=== PATIENT | male | born 1955 | race Caucasian/White ===

== ENCOUNTER 2018-06-25 11:09 | Emergency (ER) | payer OTHER ==
[2018-06-25] MEDS ORDERED: KETOROLAC 60 MG/2 ML VIAL IM STA (11:52)
--- NOTE | 2018-06-25 13:04 | XR ---
EXAMINATION TYPE: XR scapula LT DATE OF EXAM: 06/25/2018 COMPARISON: NONE HISTORY: Left scapular pain after fall injury today. TECHNIQUE: 2 views of left scapula are obtained. FINDINGS: No acute displaced fracture is seen. Overlying soft tissue is unremarkable. Visualized ribs are intact. IMPRESSION: As above.
--- NOTE | 2018-06-25 13:20 | XR ---
EXAMINATION TYPE: XR chest 2V DATE OF EXAM: 06/25/2018 COMPARISON: NONE HISTORY: Fall injury today with chest pain. TECHNIQUE: Frontal and lateral views of the chest are obtained. FINDINGS: There is some chronic parenchymal change without suspicious focal air space opacity, pleur al effusion, or pneumothorax seen. The cardiac silhouette size is within normal limits. The osseou s structures are intact. IMPRESSION: No acute cardiopulmonary process.
--- NOTE | 2018-06-25 13:23 | ED ---
General Adult HPI - General Chief complaint: Upper Respiratory Infection Stated complaint: Fell/Lt shoulder pain Time Seen by Provider: 06/25/18 11:10 Source: patient, RN notes reviewed Mode of arrival: ambulatory Limitations: no limitations - History of Present Illness Initial comments: This is a 8-year-old male who presents emergency Department complaining of left scapular pain. Patient states he fell on the ice yesterday and hurt his left scapula he try to put up with it since then but the pain is gotten too bad. Patient denies any difficulty breathing. Patient denies any shoulder pain. Patient denies any clavicle pain. Patient denies any central back pain. Patient denies any lower back pain. Patient denies any extremity pain. Patient states the pain is only over the scapula. She denies hitting his head patient denies any neck pain. Patient denies any numbness weakness. - Related Data Previous Rx's Medication Instructions Recorded Ketorolac [Toradol] 10 mg PO Q6HR #15 tab 06/25/18 Allergies Allergy/AdvReac Type Severity Reaction Status Date / Time Penicillins Allergy Anaphylaxis Verified 06/25/18 11:12 Review of Systems ROS Statement: Those systems with pertinent positive or pertinent negative responses have been documented in the HPI. ROS Other: All systems not noted in ROS Statement are negative. Past Medical History Past Medical History: Hypertension, Myocardial Infarction ([place]) Additional Past Medical History / Comment(s): Parkinson's History of Any Multi-Drug Resistant Organisms: None Reported Past Surgical History: Heart Catheterization With Stent, Orthopedic Surgery Additional Past Surgical History / Comment(s): L arm, Past Psychological History: No Psychological Hx Reported Smoking Status: Former smoker Past Alcohol Use History: None Reported Past Drug Use History: Marijuana General Exam - General Exam Comments Initial Comments: GENERAL: Patient is well-developed and well-nourished. Patient is nontoxic and well- hydrated and is in mild distress. ENT: Neck is soft and supple. No significant lymphadenopathy is noted. Oropharynx is clear. Moist mucous membranes. Neck has full range of motion without eliciting any pain. EYES: The sclera were anicteric and conjunctiva were pink and moist. Extraocular movements were intact and pupils were equal round and reactive to light. Eyelids were unremarkable. PULMONARY: Unlabored respirations. Good breath sounds bilaterally. No audible rales rhonchi or wheezing was noted. CARDIOVASCULAR: There is a regular rate and rhythm without any murmurs gallops or rubs. ABDOMEN: Soft and nontender with normal bowel sounds. No palpable organomegaly was noted. There is no palpable pulsatile mass. SKIN: Skin is clear with no lesions or rashes and otherwise unremarkable. NEUROLOGIC: Patient is alert and oriented x3. Cranial nerves II through XII are grossly intact. Motor and sensory are also intact. Normal speech, volume and content. Symmetrical smile. MUSCULOSKELETAL: Normal extremities with adequate strength and full range of motion. No lower extremity swelling or edema. No calf tenderness. Patient's scapula on the left is tender to palpation there is a slight abrasion over it. LYMPHATICS: No significant lymphadenopathy is noted PSYCHIATRIC: Normal psychiatric evaluation. Limitations: no limitations Course Vital Signs 06/25/18 06/25/18 11:12 12:10 Temperature 97.7 F Pulse Rate 73 Respiratory 18 21 Rate Blood Pressure 130/74 O2 Sat by Pulse 98 Oximetry Medical Decision Making - Medical Decision Making Scapular x-ray is negative for fracture. Chest x-ray shows no acute abnormality. Disposition Clinical Impression: Contusion, scapular region Disposition: HOME SELF-CARE Condition: Good Prescriptions: Ketorolac [Toradol] 10 mg PO Q6HR #15 tab Is patient prescribed a controlled substance at d/c from ED?: No Referrals: Jason Sepulveda MD [Primary Care Provider] - 1-2 days Time of Disposition: 13:22
[2018-06-25 13:49] VITALS: BP 121/61; PULSE 58; RESP 18; TEMP 97.5
== END 2018-06-25 13:49 | disposition home or self-care (01) ==
LOC: EC 11:09
DX: S40.012A Contusion of left shoulder, initial encounter (principal); I25.2 Old myocardial infarction; Z95.5 Presence of coronary angioplasty implant and graft; Z88.0 Allergy status to penicillin; Z87.891 Personal history of nicotine dependence; W00.0XXA Fall on same level due to ice and snow, initial encounter; Y92.009 Unspecified place in unspecified non-institutional (private) residence as the place of occurrence of the external cause
CPT/HCPCS: 73010; 71046; 99283; 96372; J1885